=== PATIENT | female | born 1980 | race Caucasian/White ===

== ENCOUNTER 2024-05-07 07:53 | Emergency (ER) | payer OTHER, SELFPAY ==
[2024-05-07 07:58] VITALS: BP 143/84; PULSE 73; TEMP 36.7; O2SAT 99; BMI 24.3
--- NOTE | 2024-05-07 08:12 | ED_ITS ---
HPI - Animal Bite General Chief Complaint: Animal Bite Stated Complaint: RT UPPER EXTREMEDY INJURY ANIMAL SCRATCH Time Seen by Provider: 05/07/24 08:03 Source: patient Mode of arrival: walk-in Limitations: no limitations History of Present Illness HPI narrative: The patient presented to the ER for evaluation of the right hand scratch, the patient mentioned that her cat scratched her right hand. This happened yes terday. There was no other complains of fever chills or any other concerns Patient mentioned that she cleaned the scratch after the injury yesterday and she also mentioned that she is up-to-date with her tetanus vaccine Related Data Previous Rx's ?Medication ?Instructions ?Recorded azithromycin 250 mg tablet See Rx Instructions PO .COMPLEX #6 05/07/24 (Zithromax Z-Lloyd) tabs ibuprofen 600 mg tablet 600 mg PO Q8H PRN pain #20 tabs 05/07/24 Allergies Allergy/AdvReac Type Severity Reaction Status Date / Time No Known Drug Allergies Allergy Verified 05/07/24 08:01 Review of Systems ROS Status of ROS 10 or more systems reviewed and unremark able except as noted in history and below Exam Narrative Exam Narrative: Nurses notes and vital signs reviewed and patient is not hypoxic. The patient right hand evaluation showed that she have 1.5 mm scratch to the dorsum of the right hand with surrounding swelling. No redness no induration no fluctuation and the patient have normal capillary fill with no vascular injury The area of swelling only limited to the dorsum of the right hand General: Well-appearing and in no apparent distress. Skin: Warm, dry, no pallor noted. No rash. Head: Normocephalic, atraumatic. Neck: Supple, non-tender. Eye: Pupils are equal, round and EOMI. No scleral icterus. Ears, Nose, Mouth, and Throat: TM are clear, no nasal mucosal hypertrophy. Oral mucosa is moist, no posterior oropharynx erythema, uvula is mid-line Cardiovascular: Regular Rate and Rhythm without murmur, gallop or rub. Respiratory: No accessory muscle use or respiratory distress. Lungs are clear to auscultation, no wheezing, rales or rhonchi Chest Wall: no tenderness Back: No midline thoracic or lumbar vertebral tenderness. No CVA tenderness Musculoskeletal: normal ROM, no calf or popliteal tenderness, no lower extremity edema/swelling GI: Abdomen is soft, non-distended. Normal bowel sounds. No masses appreciated. No tenderness to palpation. No rebound, guarding, or rigidity noted. Neurological: A&O x4. No cranial nerve dysfunction observed. No truncal ataxia. Moves all extremities. Sensation intact. Psychiatric: Cooperative and interactive. Normal mood and affect. Constitutional Vital Signs, click to edit/add: Last Vital Signs Temp 98.1 F 05/07/24 07:58 Pulse 73 05/07/24 07:58 Resp 16 05/07/24 07:58 BP 143/84 H 05/07/24 07:58 Pulse Ox 99 05/07/24 07:58 Course Vital Signs Vital signs: Vital Signs Temperature 98.1 F 05/07/24 07:58 Pulse Rate 73 05/07/24 07:58 Respiratory Rate 16 05/07/24 07:58 Blood Pressure 143/84 H 05/07/24 07:58 Pulse Oximetry 99 05/07/24 07:58 Temperature 98.1 F 05/07/24 07:58 Pulse Rate 73 05/07/24 07:58 Respiratory Rate 16 05/07/24 07:58 Blood Pressure 143/84 H 05/07/24 07:58 Pulse Oximetry 99 05/07/24 07:58 MDM - Animal Bite MDM Narrative Medical decision making narrative: Right now the patient presented to us with a cat scratch inflammation but she will be covered with azithromycin for possible infection She was instructed about the importance of monitoring her symptoms get a fever or chills or any progression of the swelling or redness she is to come back to the ER The patient is to follow up with primary care physician in next 2-3 days or to return to the emergency department should any of the signs or symptoms worsen or new symptoms develop. The patient agrees with the following Diagnosis and Treatment plan and the patient will be discharged home. Discharge Plan Discharge Stand Alone Forms: Portal Instructions Chief Complaint: Animal Bite Clinical Impression: Cat scratch Patient Disposition: Home, Self-Care Time of Disposition Decision: 08:11 Condition: Good Prescriptions / Home Meds: New ibuprofen 600 mg tablet 600 mg PO Q8H PRN (Reason: pain) Qty: 20 0RF azithromycin [Zithromax Z-Lloyd] 250 mg tablet See Rx Instructions .ROUTE .COMPLEX Qty: 6 0RF Rx Instructions: For 250 mg dose pack: take 500 mg today (day 1), then 250 mg for 4 days (days 2-5) Print Language: Bulgarian Instructions: Animal Bite (ED)
[2024-05-07] MEDS: AZITHROMYCIN 250 MG TABLET 500 MG PO (08:20)
[2024-05-07] MEDS: IBUPROFEN 600 MG TABLET PO (08:22)
== END 2024-05-07 08:27 | disposition home or self-care (01) ==
LOC: ER 08:53
PROVIDERS: Emergency Provider Emergency Medicine
DX: S60.511A Abrasion of right hand, initial encounter (principal); W55.03XA Scratched by cat, initial encounter
CPT/HCPCS: 99283